=== PATIENT | male | born 1960 ===

== ENCOUNTER 2016-12-18 08:19 | Day surgery (SDC) | payer MEDICAID ==
[~2016-12-18 08:19] MED LIST: Lactated Ringers 1,000 ML IV SCH
[2016-12-18] MEDS ORDERED: fentaNYL 100 MCG/2 ML SDV ONE (10:10)
[2016-12-18] MEDS ORDERED: Propofol 200 MG/20 ML SDV ONE ×2 (10:10→10:33)
[2016-12-18 12:23] VITALS: BP 114/75
--- NOTE | 2016-12-18 18:04 | OR ---
PREOPERATIVE DIAGNOSIS: Screening colonoscopy. POSTOPERATIVE DIAGNOSIS: Polyp at 100, 70, 40, and 10 cm. PROCEDURE PERFORMED: Colonoscopy with polypectomy at 100, 70, 40, and 10 cm. INDICATION: The patient is a 56-year-old male, who presents for colonoscopy at this time. DESCRIPTION OF PROCEDURE: Procedure was done in the endoscopy suite. Sedation was given per Anesthesia. He was placed in left lateral position. First, rectal exam was done and was normal. The scope was then slowly introduced into the rectum and slowly advanced through the rectum, sigmoid, descending, transverse, and ascending colon until the cecum was reached. Upon reaching the cecum, the scope was slowly withdrawn looking at all mucosal surfaces on the way out. No mucosal abnormalities, lesions, or polyps were noted until I get a 100 cm. At 100 cm, a small polyp was noted and removed by hot looped forceps. At 70 cm, another large polyp was noted and also removed with the help of forceps. At 40 cm, there was a very large pedunculated polyp was located and removed by hot loop forceps, and finally at 10 cm a small polyp was found and removed by hot looped forceps. The remainder of the exam was normal with the exception of moderate sigmoid diverticulosis. FINAL DIAGNOSIS: Polyp at 100, 70, 40, and 10 cm and moderate sigmoid diverticulosis. BKD: 12/18/2016 10:59:57 MODL: 12/18/2016 17:55:01 /[id number]
== END 2016-12-18 12:35 | disposition home or self-care (01) ==
LOC: VM.SDS 08:19
PROVIDERS: ATTEND Surgery
DX: Z12.11 Encounter for screening for malignant neoplasm of colon (principal); D12.6 Benign neoplasm of colon, unspecified; K57.30 Diverticulosis of large intestine without perforation or abscess without bleeding; E78.5 Hyperlipidemia, unspecified; J44.9 Chronic obstructive pulmonary disease, unspecified; Z88.0 Allergy status to penicillin; Z79.899 Other long term (current) drug therapy
CPT/HCPCS: 45384; J2704; J3010; J7120